=== PATIENT | female | born 1995 | race American Indian/Alaskan Native ===

== ENCOUNTER 2016-10-27 10:17 | Emergency (ER) | payer MEDICAID ==
[2016-10-27 12:14] LABS: Basophils % (Auto) 0.5 % (0.0-1.8); Eosinophils % (Auto) 2.6 % (0.0-4.3); Hematocrit 35.2 % (30.3-42.9); Hemoglobin 11.3 gm/dl (10.1-14.3); Mean Corpuscular HGB Conc 32 % (30-34); Mean Corpuscular Volume 77 fl (79-97); Platelet Count 257 K/mm3 (140-440); Red Blood Count 4.57 M/mm3 (3.65-5.03); Red Cell Distribution Width 14.9 % (13.2-15.2); White Blood Count 9.5 K/mm3 (4.5-11.0)
[2016-10-27 12:21] LABS: Mean Corpuscular Hemoglobin 25 pg (28-32)
[2016-10-27 14:03] LABS: Bacteria,Urine 2+ /HPF (Negative); Bilirubin,Urine NEG (Negative); Blood,Urine LG (Negative); Ketones,Urine NEG (Negative); Leukocyte Esterase,Urine SM (Negative); Mucus,Urine FEW /HPF; Nitrite,Urine NEG (Negative); Protein,Urine <15 mg/dL mg/dL (Negative); Urobilinogen,Urine < 2.0 mg/dL (<2.0)
[2016-10-27] MEDS ORDERED: TYLENOL PO ONE (16:45)
[2016-10-27] MEDS ORDERED: NACL 0.9% 1000 ML 1,000 ML IV ONE (16:47)
--- NOTE | 2016-10-27 18:09 | Ultrasound Report ---
FINAL REPORT PROCEDURE: US OB TRANSVAGINAL TECHNIQUE: Real-time transvaginal sonography was performed with image documentation. HISTORY: vag bleed, COMPARISON: No prior studies are available for comparison. FINDINGS: Uterus measures 7.4 x 3.8 x 4.4 centimeters. Endometrium measures 7 millimeters in thickness. No intrauterine gestational sac is identified. No endometrial fluid is seen. Right Ovary: 2.4 centimeter simple cyst is seen. 1.6 centimeter complex cyst is also noted Left Ovary: Normal. No adnexal mass or free fluid is seen. IMPRESSION: No intrauterine is identified. Cannot fully exclude early gestation or ectopic based on these images.
--- NOTE | 2016-10-27 18:17 | Ultrasound Report ---
FINAL REPORT PROCEDURE: US OB \T\lt; = 14 WEEKS FETUS TECHNIQUE: Real-time transabdominal sonography of the uterus, placenta, amniotic fluid, adnexa, and fetus was performed with image documentation. Measurements were obtained to determine age/size. M-mode Doppler was used to document heartbeat. CPT 28013 HISTORY: vag bleed, COMPARISON: No prior studies are available for comparison. FINDINGS: Uterus measures 7.4 x 3.8 x 4.4 centimeters. Endometrium measures 7 millimeters in thickness. No intrauterine gestational sac is identified. No endometrial fluid is seen. Right Ovary: 2.4 centimeter simple cyst is seen. 1.6 centimeter complex cyst is also noted Left Ovary: Normal. No adnexal mass or free fluid is seen. IMPRESSION: No intrauterine is identified. Cannot fully exclude early gestation or ectopic based on these images. HISTORY: COMPARISON: FINDINGS: IMPRESSION:
[2016-10-27 19:22] VITALS: BP 111/70
--- NOTE | 2016-10-27 19:58 | Emergency Department Report ---
HPI - General Chief Complaint: Vaginal Bleeding Time Seen by Provider: 10/27/16 16:33 - HPI HPI: The patient is a 21-year-old , unknown EGA, who presents with abdominal pain for the past one day, 8 out of 10 in severity, crampy in quality, lower abdomen, constant since onset. She has also mild vaginal bleeding. The patient denies fever, chills, night sweats, diarrhea, blood in the stool, dark tarry stool, dysuria, hematuria, flank pain, genital discharge, inability to pass flatus. ED Past Medical Hx - Past Medical History Previous Medical History?: No - Surgical History Past Surgical History?: Yes Additional Surgical History: t & a removed - Social History Smoking Status: Never Smoker Substance Use Type: None - Medications Home Medications: Home Medications Medication Instructions Recorded Confirmed Last Taken Type Hydrocodone Bit/Acetaminophen 1 each PO Q6HR #20 tablet 02/24/13 Unknown Rx [Lortab 5-500 Tablet] Ibuprofen [Motrin 600 MG tab] 600 mg PO Q8H PRN #50 tablet 02/24/13 Unknown Rx Benzonatate [Tessalon Perles] 100 mg PO Q8HR #12 capsule 07/17/13 Unknown Rx Fluticasone Propionate [Flonase] 16 gm NS QDAY #1 spray.susp 07/17/13 Unknown Rx traMADol [Ultram 50 MG tab] 50 mg PO Q6HR PRN #14 tablet 09/05/14 Unknown Rx Acetaminophen/Codeine [Tylenol #3] 1 tab PO Q6H PRN #15 tab 10/20/14 Unknown Rx Ibuprofen [Motrin 800 MG tab] 800 mg PO Q8H PRN #30 tablet 10/20/14 Unknown Rx methOCARBAMOL [Robaxin TAB] 500 mg PO BID #20 tab 10/20/14 Unknown Rx Acetaminophen/Codeine [Tylenol #3] 1 tab PO Q6H PRN #12 tab 02/25/[address] [Mekhi Benito] 75 mg PO Q12H #20 tablet 02/25/15 Unknown Rx Acetaminophen [Tylenol] 1,000 mg PO Q6HR #20 tablet 10/27/16 Unknown Rx Pnv95/Ferrous Fumarate/FA 1 each PO QDAY #31 tablet 10/27/16 Unknown Rx [ Vitamin Tablet] ED Review of Systems ROS: Stated complaint: 6 WKS PREG/BLEEDING Other details as noted in HPI Constitutional: denies: fever ENT: denies: throat or neck pain Respiratory: denies: cough, shortness of breath Cardiovascular: denies: chest pain Endocrine: denies unexplained weight loss or gain Gastrointestinal: reports abdominal pain, nausea Genitourinary: denies: dysuria Musculoskeletal: denies: leg swelling Skin: denies: rash Neurological: denies: headache Hematological/Lymphatic: denies: easy bleeding or easy bruising Psych: denies sadness or hopelessness Physical Exam - Physical Exam Vital Signs: Vital Signs 10/27/16 10/27/16 10/27/16 11:40 17:16 19:22 Temperature 98.5 F 98.2 F Pulse Rate 84 88 64 Respiratory 16 18 18 Rate Blood Pressure 127/90 Blood Pressure 139/86 111/70 [Left] O2 Sat by Pulse 100 100 100 Oximetry Physical Exam: General: well-nourished, well-developed, no acute distress Head: Normocephalic, atraumatic Eyes: normal sclera ENT: Mucous membranes are pale and dry Neck: No neck stiffness, no cervical adenopathy Respiratory: Breath sounds equal bilaterally, no wheezing, rales, or rhonchi Cardio: S1 and S2 present, no murmurs, rubs, gallops, capillary refill is delayed Abdomen: Normoactive bowel sounds, soft abdomen, suprapubic tenderness to palpation present, no rigidity, no guarding or rebound tenderness Chest WALL/Back: No tenderness to palpation of the chest wall, no CVA tenderness with percussion Musc: No pitting edema Skin: No rash Neuro: no facial drooping, normal speech Psych: Normal affect ED Course Vital Signs 10/27/16 10/27/16 10/27/16 11:40 17:16 19:22 Temperature 98.5 F 98.2 F Pulse Rate 84 88 64 Respiratory 16 18 18 Rate Blood Pressure 127/90 Blood Pressure 139/86 111/70 [Left] O2 Sat by Pulse 100 100 100 Oximetry ED Medical Decision Making - Lab Data Result diagrams: 10/27/16 11:52 - Medical Decision Making The patient was seen and examined by myself. The patient is placed on a supervisor pipeline and continuous pulse ox. On initial evaluation, the patient was found to be in no distress. Evaluation orders were placed. The patient 1 L normal saline fluid bolus for treatment of dehydration a tablet, for her pain. Lab results reveal Rh+ blood type and beta hCG of 2500. Ultrasound of the pelvis is negative for IUP, and is unable to rule out a tablet patient. The patient is discharged to receive repeat beta hCG in 2-3 days.The patient was reevaluated and reported that their symptoms were markedly improved. The patient is stable for discharge with outpatient follow-up. The patient is given follow-up and return instructions. The patient expressed understanding and agreed with the plan. The patient is discharged in stable condition. Critical care attestation.: If time is entered above; I have spent that time in minutes in the direct care of this critically ill patient, excluding procedure time. ED Disposition Clinical Impression: Threatened , Acute suprapubic pain, Dehydration Disposition: TO HOME OR SELFCARE Is pt being admited?: No Does the pt Need Aspirin: No Condition: Stable Instructions: Threatened Miscarriage (ED), Acute Abdominal Pain (ED) Additional Instructions: Your ultrasound was unable to identify a normal intrauterine , and also was not able to rule out an ectopic . Make sure to follow-up with your [facility] within the next 48 hours for repeat B-HCG testing and trending. Your beta hCG level should double in 2 days if your is progressing as normal. You could have an ectopic and you must immediately present to an emergency department should you develop worsening of your symptoms or severe pain, vaginal bleeding, lightheadedness, passing out, confusion, or fever. Prescriptions: Acetaminophen [Tylenol] 1,000 mg PO Q6HR #20 tablet Pnv95/Ferrous Fumarate/FA [ Vitamin Tablet] 1 each PO QDAY #31 tablet Referrals: MICHELLE CARDONA MD [Primary Care Provider] - 3-5 Days MONTEZ FLORES MD [Staff Physician] - 3-5 Days Forms: Work/School Release Form(ED) Time of Disposition: 19:51
== END 2016-10-27 20:09 | disposition home or self-care (01) ==
LOC: ED 10:17
DX: O20.0 Threatened abortion (principal); Z3A.00 Weeks of gestation of pregnancy not specified
CPT/HCPCS: 36415; 76801; 76817; 81001; 84702; 85025; 86850; 86900; 86901; 96360; 99284; J7030